=== PATIENT | female | born 1980 ===

== ENCOUNTER 2025-09-05 11:00 | Inpatient (IN) | payer OTHER ==
[~2025-09-05] VITALS: Ht 162.6 cm; Wt 103.4 kg
[2025-09-05] MEDS ORDERED: LANTUS SOL100 UNIT/1 (12:48)
[2025-09-05] MEDS ORDERED: GLIMEPIRIDE4 MG (12:48)
[2025-09-05] MEDS ORDERED: RYBELSUS3 MG PO (12:48)
[2025-09-05] MEDS ORDERED: IRBESARTAN75 MG (12:49)
[2025-09-05] MEDS ORDERED: CRESTOR40 MG PO (12:49)
[2025-09-05] MEDS ORDERED: CARVEDILOL ER40 MG (12:49)
[2025-09-05] MEDS ORDERED: PROTONIX40 MG PO (12:49)
[2025-09-05 12:52] VITALS: BP 140/89
[2025-09-12] MEDS ORDERED: DEXAMETHASONE SODIUM PHOSPHATE 4 MG/ML VIAL ONE (09:26)
[2025-09-12] MEDS ORDERED: ENALAPRILAT DIHYDRATE 1.25 MG/ML VIAL IV PRN (09:30)
[2025-09-12] MEDS ORDERED: ONDANSETRON HCL 2 MG/ML VIAL IV PRN (09:30)
[2025-09-12] MEDS ORDERED: CEFAZOLIN SODIUM 1,000 MG VIAL ONE (10:08)
[2025-09-12] MEDS ORDERED: ENALAPRILAT DIHYDRATE 1.25 MG/ML VIAL IV ONE (14:20)
[2025-09-12] MEDS ORDERED: INSULIN LISPRO 1,000 UNIT/10 ML UNITS SUBCUTANEO ONE (14:46)
[2025-09-12] MEDS ORDERED: DEXTROSE 50 % IN WATER 0.5 G/ML DISP.SYRIN IV PRN (15:00)
[2025-09-12] MEDS ORDERED: INSULIN LISPRO 1,000 UNIT/10 ML UNITS SUBCUTANEO PRN (15:00)
[2025-09-12] MEDS ORDERED: DIPHENHYDRAMINE HCL 75 MG,LIDOCAINE HCL 30 ML,MAG HYDROX/ALUMINUM HYD/SIMETH 30 ML PO SCH (17:00)
[2025-09-12] MEDS ORDERED: CYCLOBENZAPRINE HCL 5 MG TABLET PO SCH (17:00)
[2025-09-12] MEDS ORDERED: ACETAMINOPHEN 500 MG GEL..CAP PO SCH (17:00)
[2025-09-12] MEDS ORDERED: TRAMADOL HCL 50 MG TABLET PO SCH (17:00)
[2025-09-12 18:30] VITALS: BP 137/78; O2SAT 94
[2025-09-12] MEDS ORDERED: PANTOPRAZOLE SODIUM 40 MG/VIAL VIAL IV PUSH SCH (21:00)
[2025-09-12] MEDS ORDERED: Calcium Carbonate 1 TAB TABLET PO SCH (21:00)
[2025-09-13 00:49] VITALS: BP 153/81; O2SAT 96
[2025-09-13] MEDS ORDERED: LEVOTHYROXINE SODIUM 150 MCG TABLET PO SCH (06:00)
[2025-09-13] MEDS ORDERED: MAG HYDROX/ALUMINUM HYD/SIMETH 30 ML BLIST.PACK PO ONE (07:55)
[2025-09-13 08:00] VITALS: BP 145/77
[2025-09-13] MEDS ORDERED: IRBESARTAN 150 MG TABLET PO SCH (09:00)
[2025-09-13] MEDS ORDERED: GLIMEPIRIDE 4 MG TABLET PO SCH (09:00)
[2025-09-13] MEDS ORDERED: CARVEDILOL 12.5 MG TABLET PO SCH (09:00)
[2025-09-13] MEDS ORDERED: ROSUVASTATIN CALCIUM 20 MG TABLET PO SCH ×2 (09:00)
== END 2025-09-13 15:23 | disposition home or self-care (01) | DRG 627 ==
LOC: O/R 09-12 06:00 → SURH 09-12 06:00
PROVIDERS: ADMIT Surgery; ATTEND Surgery
PROC: 0GBP0ZZ Excision of Left Inferior Parathyroid Gland, Open Approach (ICD-10-PCS; 2025-09-12)
PROC: 0GBN0ZZ Excision of Right Inferior Parathyroid Gland, Open Approach (ICD-10-PCS; 2025-09-12)
PROC: 0GTG0ZZ Resection of Left Thyroid Gland Lobe, Open Approach (ICD-10-PCS; principal; 2025-09-12 10:00)
DX: C73 Malignant neoplasm of thyroid gland (principal); D35.1 Benign neoplasm of parathyroid gland; E21.0 Primary hyperparathyroidism; E04.2 Nontoxic multinodular goiter